=== PATIENT | female | born 1975 | race Two or more races ===

== ENCOUNTER 2021-02-20 19:28 | Emergency (ER) | payer OTHER ==
[~2021-02-20] VITALS: Ht 162.6 cm; Wt 104.3 kg
[2021-02-20] MEDS ORDERED: VERAPAMIL ER120 MG PO (20:25)
== END 2021-02-20 21:46 | disposition home or self-care (01) ==
LOC: ER 19:28
DX: I47.1 Supraventricular tachycardia (principal)